=== PATIENT | male | born 1975 | race Two or more races ===

== ENCOUNTER 2016-11-28 13:01 | Inpatient (IN) | payer MEDICAID ==
[~2016-11-28] VITALS: Ht 172.7 cm; Wt 94.0 kg
[~2016-11-28 13:01] MED LIST: APAP/HYDROCODON1 T13 PO; BACTRIM DS1 TAB PO; COL100 PO; NORCO1 TAB PO
--- NOTE | 2016-11-28 13:40 | NUR ---
PT TO ED FOR EVAL OF WOUND TO L FOOT AND PAIN. PT HAD BEEN UNDER THE CARE OF HIS PHYSICAN AND WOUND CARE HAD BEEN DONEBY NURSES AT DOCTORS OFFICE. AFTER VISIT TODAY PT. WAS REFERED TO ED FOR FURTHER TREATMENT AND CARE. PT ARRIVED WITH DRESSING IN PLACE. DRESSING REVMOVED.
--- NOTE | 2016-11-28 13:58 | NUR ---
DR. HALL AT BEDSIDE FOR MSE.
--- NOTE | 2016-11-28 14:40 | NUR ---
PT RECLINED ON KARI IN POSITION OF COMFORT. RESPS E/U. NO S/S OF DISTRESS NOTED. CALL LIGHT W/IN REACH. WILL CONTINUE TO MONITOR.
[2016-11-28 14:43] LABS: BASOPHIL % 1.1 % (0-2); PLATELET COUNT 316 x10^3mcL (130-400); RED CELL DISTRIBUTION WIDTH 13.6 % (11.5-14.5)
[2016-11-28 14:46] LABS: CALCIUM 8.8 mg/dL (8.5-10.1); CARBON DIOXIDE 26.2 mmol/L (21-32); CHLORIDE SERUM 106 mmol/L (98-107); CREATININE SERUM 0.7 mg/dL (0.7-1.3); GFR1 > 60 mL/min; GLUCOSE SERUM 109 mg/dL (74-106); POTASSIUM SERUM 3.8 mmol/L (3.5-5.1); SODIUM SERUM 142 mmol/L (136-145)
[2016-11-28 14:51] LABS: ALBUMIN 4.1 g/dL (3.4-5.0); ALKALINE PHOSPHATASE 69 U/L (46-116); ALT/SGPT 17 U/L (16-63); AST/SGOT 9 U/L (15-37); BILIRUBIN TOTAL 0.3 mg/dL (0.20-1.00)
[2016-11-28 14:53] LABS: TOTAL PROTEIN, SERUM 8.6 g/dL (6.4-8.2)
--- NOTE | 2016-11-28 16:58 | NUR ---
IV SITE PATENT. NO S/S OF INFILTRATION OR INFECTION NOTED. PT DENIES PAIN OR DISCOMFORT TO SITE.
--- NOTE | 2016-11-28 18:15 | NUR ---
REPORT GIVEN TO LOLA MOTLEY FOR CONTINUATION OF CARE PRIMARY RN.
--- NOTE | 2016-11-28 18:20 | NUR ---
PT TRANSFERED VIA GURNEY ACCOMPANIED BY NURSE AND EMT. ANGULAR DEVELOPER ATTACHED. VSS. RESPS E/U. NO S/S OF DISTRESS NOTED. IV SITE PATENT. NO S/S OF INFILTRATION OR INFECTION NOTED. PT DENIES PAIN OR DISCOMFORT TO SITE.
--- NOTE | 2016-11-28 18:30 | NUR ---
RECEIVED PT FROM ED VIA [facility], CAME IN DUE TO LEFT FOOT PAIN AND WOUND X1 MONTH. AAOX4. DENIES HEADACHE/DIZZINESS. NO SOB NOTED. DENIES CHEST PAIN/PRESSURE. DENIES ABDOMINAL DISCOMFORT. C/O 4/10 LEFT FOOT PAIN DESCRIBED ACHING. DENIES NUMBNESS/TINGLING SENSATION. W/ OPEN WOUND ON THE LEFT FOOT, W/ SCANT REDDISH DRAINAGE, WOUND CULTURE DONE AND SENT TO LAB. W/ BLACK DISCOLORATION ON BLE. SIDE RAILS UPX2. CALL LIGHT ON REACH. PRIMARY NURSE BOUBACAR AT BEDSIDE FOR CONTINUITY OF CARE.
[2016-11-28 18:41] VITALS: BP 140/83
[2016-11-28 18:46] VITALS: Ht 172.7 cm; Wt 94.0 kg
[2016-11-28 19:04] LABS: UA SPECIFIC GRAVITY >=1.030 (1.005-1.035); microscopic required? YES; urine erythrocyte NEGATIVE (NEGATIVE)
[2016-11-28 19:17] LABS: T3 TOTAL 1.05 ng/mL
[2016-11-28 19:22] LABS: FREE THYROXINE INDEX 3.1 ug/dL (1.4-4.5); T4(THYROXINE) 9.4 ug/dL (4.7-13.3)
[2016-11-28 19:34] LABS: CHOLESTEROL/HDL RATIO 3.6; MAGNESIUM 1.8 mg/dL (1.8-2.4); PHOSPHOROUS 3.9 mg/dL (2.5-4.9)
--- NOTE | 2016-11-28 20:00 | NUR ---
RECEIVED PT IN BED, ALERT AND ORIENTED. DENIES HEADACHE/DIZZINESS. RESP. EVEN AND UNLABORED.ON ROOM AIR, NO DISTRESS NOTED. SR ON THE MONITOR, DENIES CHEST PAIN OR ANY DISCOMFORT AT THIS TIME. AFEBRILE AND VITAL SIGNS STABLE. IVF, NS AT 100ML/HR, INTACT AND INFUSING VIA LFA, SITE CLEAR. LT FOOT WITH OPEN WOUND. BLE WITH DARK COLOR DISCOLORATION. ABLE TO MOVE EXTS. VOIDING FREELY. ASSISTED WITH HS CARE. CALL LIGHT WITHIN REACH. WILL CONTINUE TO MONITOR.
[2016-11-28 20:36] VITALS: BP 135/84
--- NOTE | 2016-11-29 00:31 | NUR ---
NO COMPLAINTS NOTED AT THIS TIME. ASLEEP, EASILY AROUSABLE.RESP. EVEN AND UNLABORED. NO DISTRESS NOTED. WILL CONTINUE TO MONITOR.
[2016-11-29] MEDS ORDERED: METFORMIN HYDR500 M1 PO (02:08)
[2016-11-29 03:32] LABS: AMPHETAMINE QUAL UR NONE DETECTED (NEG <=1000)
[2016-11-29 05:20] VITALS: BP 127/80
[2016-11-29 06:01] LABS: BASOPHIL % 0.3 % (0-2); PLATELET COUNT 283 x10^3mcL (130-400); RED CELL DISTRIBUTION WIDTH 14.1 % (11.5-14.5)
[2016-11-29 06:11] LABS: CALCIUM 8.3 mg/dL (8.5-10.1); CARBON DIOXIDE 25.5 mmol/L (21-32); CHLORIDE SERUM 107 mmol/L (98-107); CREATININE SERUM 0.7 mg/dL (0.7-1.3); GFR1 > 60 mL/min; GLUCOSE SERUM 100 mg/dL (74-106); MAGNESIUM 1.7 mg/dL (1.8-2.4); PHOSPHOROUS 4.2 mg/dL (2.5-4.9); POTASSIUM SERUM 3.8 mmol/L (3.5-5.1); SODIUM SERUM 140 mmol/L (136-145)
--- NOTE | 2016-11-29 06:34 | NUR ---
SLEPT WELL DURING THE NIGHT , NO COMPLAINTS NOTED. AFEBRILE AND VITAL SIGNS STABLE. RESP. EVEN AND UNLABORED.DENIES PAIN OR ANY DISCOMFORT AT THIS TIME. DUE MEDS GIVEN ORDERED, AMANDA. WELL. IVF INTACT AND INFUSING WELL, SITE CLEAR. VOIDING FREELY. WILL ENDORSE TO INCOMING NURSE.
--- NOTE | 2016-11-29 07:53 | NUR ---
RECEIVED AWAKE ALERT AND ORIENTED. NO RESP. DISTRESS NOTED. NO C/O PAIN OR DISCOMFORT. IVF INFUSING WELL AND SITE CLEAR. CALL LIGHT WITHIN REACH. WILL CONTINUE W/PLAN OF CARE.
--- NOTE | 2016-11-29 08:35 | NUR ---
AM ROUND DONE BY DR. VANG AND MEDICAL TEAM. PLAN TO CONT. WITH CURRENT TX AND CONSULT PODIATRY. PT AGREED WITH PLAN
[2016-11-29 08:58] VITALS: BP 118/75
[2016-11-29 14:22] VITALS: BP 118/70
--- NOTE | 2016-11-29 14:56 | NUR ---
WOUND DEBRIEDMENT TO LT FOOD DONE BY DR. KING. PT TOLERATED WELL, MEDICATED WITH MORPHINE IVP PER ORDER. DRESSING D/C/I, GONZALEZ WRAP IN PLACE.
[2016-11-29 17:23] VITALS: BP 137/84
--- NOTE | 2016-11-29 18:30 | NUR ---
PT REMAINS IN NO DISTRESS. AWAKE, ALERT AND ORIENTED. NO CHANGES IN VS. NO C/O PAIN OR DISCOMFORT. IVF INFUSING WELL AND SITE CLEAR. CALL LIGHT WITHIN REACH. WILL BE ENDORSED TO INCOMING SHIFT.
--- NOTE | 2016-11-29 19:19 | NUR ---
AAO X 4. HOB ELEVATED 40 DEG. UPPER SIDE RAILS IN RAISED POSITION. CALL LIGHT WITHIN EASY REACH. BREATHING EVEN AND UNLABORED ON ROOM AIR. MED SURG PT. DRESSING WITH GONZALEZ WRAP TO LEFT LEG CDI. CAPILLARY REFILL TO LEFT TOES < 3SECS. DENIES HAVING PAIN AT THIS TIME.
[2016-11-29 20:32] VITALS: BP 124/70
--- NOTE | 2016-11-29 23:33 | NUR ---
eyes closed, breathing even and unlabored on room air. call light within easy reach.
[2016-11-30 05:45] VITALS: BP 125/90
[2016-11-30 06:14] LABS: BASOPHIL % 0.5 % (0-2); PLATELET COUNT 285 x10^3mcL (130-400); RED CELL DISTRIBUTION WIDTH 13.7 % (11.5-14.5)
--- NOTE | 2016-11-30 06:14 | NUR ---
ASLEEP, EASILY AWAKENED. DENIES HAVING PAIN. DRESSING TO LEFT LEG CDI. CAPILLARY REFILL TO LEFT TOES < 3 SECS. IVF OF NS AT 100ML/HR.
[2016-11-30 06:28] LABS: CALCIUM 8.4 mg/dL (8.5-10.1); CARBON DIOXIDE 26.5 mmol/L (21-32); CHLORIDE SERUM 108 mmol/L (98-107); CREATININE SERUM 0.7 mg/dL (0.7-1.3); GFR1 > 60 mL/min; GLUCOSE SERUM 88 mg/dL (74-106); MAGNESIUM 1.6 mg/dL (1.8-2.4); PHOSPHOROUS 4.7 mg/dL (2.5-4.9); POTASSIUM SERUM 3.9 mmol/L (3.5-5.1); SODIUM SERUM 140 mmol/L (136-145)
--- NOTE | 2016-11-30 07:30 | NUR ---
RECEIVED PATIENT IN BED, AWAKE ALERT AND ORIENTED. IVF INFUSING WELL. DRESSING AND GONZALEZ WRAP NOTED ON LEFT FOOT, PER PATIENT THE ACCOUNT LIAISON WAS JUST INTO SEE HIM AND CHANGE THE DRESSING. DENIES ANY PAIN OR DISCOMFORT. WILL CONTINUE TO MONITOR.
--- NOTE | 2016-11-30 08:15 | NUR ---
DR VANG AND MEDICAL TEAM INTO SEE PATIENT AND DISCUSS PLAN OF CARE, TO INCLUDE D/A HOME.
[2016-11-30 09:10] VITALS: BP 136/81
[2016-11-30] MEDS ORDERED: LEVAQUIN750 MG PO (15:00)
--- NOTE | 2016-11-30 15:50 | NUR ---
DR ARREOLA AWARE THAT PATIENT WOUND CX WAS MDRO. PER SHE WILL CHANGE ANTIBIOTIC AND PATIENT IS TO D/C HOME PLANNED.
--- NOTE | 2016-11-30 15:51 | NUR ---
PATIENT IS READY FOR D/C HOME. HL DC'D. DISCHARGE INSTRUCTIONS GIVEN. PERSONAL BELONGINGS LIST SIGNED. PATIENT GIVEN WOUND CARE INSTRUCTIONS AND DRESSING CHANGE SUPPLIES, HYDROGEL, VIVIANA, TAPE, AND DRESSINGS. PATIENT'S CONDITION APPEARS STABLE. PATIENT'S RIDE HERE TO TAKE PATIENT HOME.
== END 2016-11-30 15:50 | disposition home or self-care (01) | DRG 420 ==
LOC: ED 13:01 → DU 17:39 → MU 11-29 12:02
PROVIDERS: Emergency Medicine; Family Medicine; Family Medicine Sports Medicine; ADMIT Family Medicine
PROC: 0HBNXZZ Excision of Left Foot Skin, External Approach (ICD-10-PCS; principal; 2016-11-29)
DX: E11.621 Type 2 diabetes mellitus with foot ulcer (principal); N17.0 Acute kidney failure with tubular necrosis; E11.42 Type 2 diabetes mellitus with diabetic polyneuropathy; D68.69 Other thrombophilia; R80.9 Proteinuria, unspecified; E78.1 Pure hyperglyceridemia; Z68.31 Body mass index [BMI] 31.0-31.9, adult
CPT/HCPCS: 83880; 84439; J1956; J2270; J2543; J3370; J3490; J7030; J7050; Q0092